=== PATIENT | female | born 1995 | race Caucasian/White ===

== ENCOUNTER 2025-08-30 23:36 | Emergency (ER) | payer OTHER ==
[~2025-08-30] VITALS: Ht 152.4 cm; Wt 70.3 kg
[2025-08-31] MEDS ORDERED: IBUPROFEN 400 MG TABLET ONE (00:01)
[2025-08-31] MEDS: IBUPROFEN 400 MG TABLET PO ONE (00:20)
[2025-08-31 00:39] VITALS: BP 120/70; TEMP 98; O2SAT 99
== END 2025-08-31 00:40 | disposition home or self-care (01) ==
LOC: ER 23:39
DX: S13.4XXA Sprain of ligaments of cervical spine, initial encounter (principal); R51.9 Headache, unspecified; V89.2XXA Person injured in unspecified motor-vehicle accident, traffic, initial encounter; Y93.89 Activity, other specified; Y92.410 Unspecified street and highway as the place of occurrence of the external cause; Y99.9 Unspecified external cause status
CPT/HCPCS: 70450-TC; 72125-TC